=== PATIENT | male | born 2005 | race African-American/Black ===

== ENCOUNTER 2024-02-16 17:55 | Emergency (ER) | payer MEDICAID, OTHER ==
[~2024-02-16] VITALS: Ht 182.9 cm; Wt 72.7 kg
[2024-02-16 18:00] VITALS: TEMP 98.1; O2SAT 100
[2024-02-16] MEDS ORDERED: KETOROLAC 15MG/ML VIAL IM ONE (18:15)
[2024-02-16 18:20] LABS: CLARITY URINE CLEAR (CLEAR); COLOR URINE YELLOW (YELLOW); GLUCOSE URINE NEGATIVE (NEGATIVE); KETONES URINE NEGATIVE (NEGATIVE); LEUKOCYTE ESTERASE URINE NEGATIVE (NEGATIVE); NITRITE URINE NEGATIVE (NEGATIVE); OCCULT BLOOD URINE NEGATIVE (NEGATIVE); PROTEIN URINE NEGATIVE (NEGATIVE); SPECIFIC GRAVITY URINE 1.017 (1.005-1.030)
[2024-02-16 21:57] VITALS: BP 120/73; PULSE 72; RESP 18
[2024-02-16] MEDS: KETOROLAC 15MG/ML VIAL IM NR (21:57)
== END 2024-02-16 22:07 | disposition home or self-care (01) ==
LOC: ER 17:55
DX: R10.31 Right lower quadrant pain (principal)
CPT/HCPCS: 99285; 76705; 81003; 96372; J1885